=== PATIENT | male | born 1970 | race Caucasian/White ===

== ENCOUNTER 2018-08-10 08:38 | Inpatient (IN) ==
[~2018-08-10 08:38] MED LIST: Bupivacaine/Epinephrine PF Inj 0.5% 30 ML Vial ONE; Sugammadex Inj 200 MG/2 ML Vial IV.PUSH ONE
[2018-08-10] MEDS ORDERED: Chlorhexidine Gluconate 2% 1 Pack (2 Cloths) TOPICAL ONE (10:21)
[2018-08-10] MEDS ORDERED: Metoprolol Tartrate 25 MG Tablet PO ONE (10:21)
[2018-08-10] MEDS ORDERED: ceFAZolin 2 GM Premix Inj 2 GM/50 ML PIGGYBACK IV.SIG SCH (10:24)
[2018-08-10] MEDS ORDERED: Sodium Chlor 0.9% Inj 500 ML IV.SIG SCH (11:00)
[2018-08-10] MEDS ORDERED: ceFAZolin Inj 3,000 MG in Sodium Chlor 0.9% Inj 100 ML IV.SIG SCH (12:00)
[2018-08-10] MEDS ORDERED: Bupivacaine/Epinephrine PF Inj 0.5% 30 ML Vial ONE (13:10)
[2018-08-10] MEDS ORDERED: Phenylephrine/NS 1000 MCG/10ML Syringe IV.PUSH ONE (13:36)
[2018-08-10] MEDS ORDERED: Succinylcholine Inj 100 MG/5 ML Syringe IV.PUSH ONE (13:36)
[2018-08-10] MEDS ORDERED: ceFAZolin 1 GM Premix Inj 1 GM/50 ML PIGGYBACK IV.SIG ONE (14:09)
[2018-08-10] MEDS ORDERED: Sugammadex Inj 200 MG/2 ML Vial IV.PUSH ONE (14:18)
[2018-08-10] MEDS ORDERED: diphenhydrAMINE HCl 12.5 MG/5 ML Elixir UDC PO PRN (17:23)
[2018-08-10] MEDS ORDERED: Post-op Orders (for Pharmacy) OTHER STA (17:23)
[2018-08-10] MEDS ORDERED: Naloxone Inj 0.4 MG/ML Vial IV.PUSH PRN (17:31)
[2018-08-10] MEDS ORDERED: fentaNYL Citrate Inj 100 MCG/2 ML Ampul ONE (17:49)
[2018-08-10] MEDS ORDERED: Morphine Inj 4 MG/ML Vial ONE (17:50)
[2018-08-10] MEDS ORDERED: Morphine Inj 30 MG/30 ML PCA.VIAL PCA ONE (18:13)
[2018-08-10] MEDS: Morphine Inj 30 MG/30 ML PCA.VIAL PCA PRN (18:13)
[2018-08-10] MEDS: KCL 20 mEq/D5W/NaCl 0.45% Inj 1,000 ML IV.CONT SCH (18:31)
[2018-08-10] MEDS ORDERED: *morphine SULFATE 10 MG/ML PERIprocedure ONLY ONE (18:50)
[2018-08-10] MEDS: Enoxaparin Inj 40 MG/0.4 ML Syringe SQ SCH (21:31)
[2018-08-10] MEDS: ceFAZolin 1 GM Premix Inj 1 GM/50 ML PIGGYBACK IV.SIG SCH (21:32)
[2018-08-11] MEDS: KCL 20 mEq/D5W/NaCl 0.45% Inj 1,000 ML IV.CONT SCH ×3 (01:32→20:36)
[2018-08-11] MEDS: ceFAZolin 1 GM Premix Inj 1 GM/50 ML PIGGYBACK IV.SIG SCH ×2 (05:26→12:24)
[2018-08-11 07:24] LABS: Carbon Dioxide 31.5 meq/L (21.0-32.0); Magnesium 2.3 mg/dL (1.5-2.5); Potassium 4.9 meq/L (3.5-5.1)
[2018-08-11] MEDS: Morphine Inj 30 MG/30 ML PCA.VIAL PCA PRN (07:54)
[2018-08-11 10:21] LABS: Baso % (Auto) 0.2 % (0.0-2.0); Eos % (Auto) 0.1 % (0.0-4.0); Hematocrit 43.4 % (39.0-51.0); Hemoglobin 14.4 gm/dL (13.0-17.0); Lymph # (Auto) 0.7 th/mm3 (1.0-4.8); Lymph % (Auto) 7.5 % (9.0-44.0); Mean Corpuscular HGB Conc 33.2 % (32.0-36.0); Mean Corpuscular Hemoglobin 31.2 pg (27.0-34.0); Mean Platelet Volume 7.7 fL (7.0-11.0); Mono # (Auto) 0.8 th/mm3 (0.0-0.9); Mono % (Auto) 8.5 % (0.0-8.0); Neut # (Auto) 8.2 th/mm3 (1.8-7.7); Neut % (Auto) 83.7 % (16.0-70.0); Platelet Count 277 th/mm3 (150-450); Red Blood Count 4.61 mil/mm3 (4.50-5.90); Red Cell Distribution Width 14.1 % (11.6-17.2); White Blood Count 9.8 th/mm3 (4.0-11.0)
[2018-08-11] MEDS: Enoxaparin Inj 40 MG/0.4 ML Syringe SQ SCH ×3 (10:26→23:41)
[2018-08-11] MEDS: Acetaminophen-HYDROcodone 325/7.5 Liq 15 ML UDC PO PRN ×2 (14:35→20:30)
[2018-08-11] MEDS: Ketorolac Inj 30 MG/ML (IVP) Vial IV.PUSH SCH (17:57)
[2018-08-12] MEDS: Ketorolac Inj 30 MG/ML (IVP) Vial IV.PUSH SCH ×2 (01:27→04:59)
[2018-08-12] MEDS: KCL 20 mEq/D5W/NaCl 0.45% Inj 1,000 ML IV.CONT SCH ×3 (01:30→10:08)
[2018-08-12] MEDS: Acetaminophen-HYDROcodone 325/7.5 Liq 15 ML UDC PO PRN ×2 (04:48→10:38)
[2018-08-12] MEDS: Enoxaparin Inj 40 MG/0.4 ML Syringe SQ SCH (10:04)
--- NOTE | 2018-08-12 15:43 | P.PNGS ---
Subjective Patient reports: no new complaints, tolerating liquids well (Pt denies SOB, palpitations or chest pain, no nausea. He does c/o some low back pain. ), no flatus Physical Exam Vital signs: Vital Signs 08/11/18 16:00 08/11/18 16:01 08/11/18 16:02 Temperature 97.1 F L Pulse Rate 93 H 88 Respiratory Rate 18 18 Blood Pressure 138/61 Pulse Oximetry 89 L 91 L 08/11/18 20:00 08/11/18 21:39 08/12/18 00:00 Temperature 97.4 F L 97.6 F Pulse Rate 88 91 H 83 Respiratory Rate 22 22 22 Blood Pressure 123/67 131/69 Pulse Oximetry 93 L 94 L 08/12/18 08:00 08/12/18 09:15 Temperature 97.1 F L Pulse Rate 79 70 Respiratory Rate 20 20 Blood Pressure 115/55 L Pulse Oximetry 95 96 Intake & Output 08/11/18 08/12/18 08/12/18 18:59 06:59 18:59 Intake Total 3440 / 3440 1120 / 1120 Output Total 1175 / 1175 400 / 400 Balance 2265 / 2265 720 / 720 Weight 222.9 kg Intake: IV 2600 / 2600 1000 / 1000 D5W/1/2NS + KCL 20 mEq Inj , 1999 / 1999 1000 / 1000 000 ML @ 125 mls/hr IV.CONT . Q8H JARED Rx#:[id number] Ofirmev Inj 1,000 mg In 100 ml 200 / 200 @ 400 mls/hr IV.SIG Q6H JARED Rx# :[id number] Ancef 1 GM Premix Inj 1 gm In 50 / 50 50 ml @ 100 mls/hr IV.SIG Q8H JARED Rx#:[id number] Flagyl 500 MG Inj 100 ML @ 100 100 / 100 mls/hr IV.SIG Q8H JARED Rx#: [id number] Oral 840 / 840 120 / 120 Output: Urine 225 / 225 400 / 400 Urine Amount (Catheter) 950 / 950 Indwelling Urethral Catheter 950 / 950 Other: # Bowel Movements 0 Narrative: GENERAL: SKIN: Warm and dry. HEAD: Normocephalic. EYES: No scleral icterus. No injection or drainage. NECK: Supple, trachea midline. No JVD or lymphadenopathy. CARDIOVASCULAR: Regular rate and rhythm without murmurs, gallops, or rubs. RESPIRATORY: Breath sounds equal bilaterally. No accessory muscle use. GASTROINTESTINAL: Abdomen soft, normal post operative tenderness, laparoscopic sites WNL, mildly distended. MUSCULOSKELETAL: No cyanosis, or edema. BACK: Nontender without obvious deformity. No CVA tenderness. - Urinary Catheter Management Indwelling Urethral Catheter Cath placed during this visit: yes, but has since been removed by the nurse Reason for continuing: Decision to DC catheter Insertion date: 08/10/18 Removal date: 08/11/18 Removal time: 10:40 Results - Labs 08/11/18 09:12 08/11/18 06:22 Assessment and Plan - Plan POD #1 laparoscopic RNY Advance clear liquids to 60 ml every 30 minutes DC HAND [employer]OT[employer]ER, start toradol for back pain. Walk ad yas, with SCD's Anticipate DC home tomorrow if continues to do well. Code Status: full Discussed Condition With: patient.
--- NOTE | 2018-08-12 15:44 | P.PNGS ---
Subjective Patient reports: no new complaints (Pt denies chest pain palpitations or SOB. ) Physical Exam Vital signs: Vital Signs 08/11/18 16:00 08/11/18 16:01 08/11/18 16:02 Temperature 97.1 F L Pulse Rate 93 H 88 Respiratory Rate 18 18 Blood Pressure 138/61 Pulse Oximetry 89 L 91 L 08/11/18 20:00 08/11/18 21:39 08/12/18 00:00 Temperature 97.4 F L 97.6 F Pulse Rate 88 91 H 83 Respiratory Rate 22 22 22 Blood Pressure 123/67 131/69 Pulse Oximetry 93 L 94 L 08/12/18 08:00 08/12/18 09:15 Temperature 97.1 F L Pulse Rate 79 70 Respiratory Rate 20 20 Blood Pressure 115/55 L Pulse Oximetry 95 96 Intake & Output 08/11/18 08/12/18 08/12/18 18:59 06:59 18:59 Intake Total 3440 / 3440 1120 / 1120 Output Total 1175 / 1175 400 / 400 Balance 2265 / 2265 720 / 720 Weight 222.9 kg Intake: IV 2600 / 2600 1000 / 1000 D5W/1/2NS + KCL 20 mEq Inj 1, 2000 / 2000 1000 / 1000 000 ML @ 125 mls/hr IV.CONT . Q8H JARED Rx#:[id number] Ofirmev Inj 1,000 mg In 100 ml 200 / 200 @ 400 mls/hr IV.SIG Q6H JARED Rx# :[id number] Ancef 1 GM Premix Inj 1 gm In 50 / 50 50 ml @ 100 mls/hr IV.SIG Q8H JARED Rx#:[id number] Flagyl 500 MG Inj 100 ML @ 100 100 / 100 mls/hr IV.SIG Q8H JARED Rx#: [id number] Oral 840 / 840 120 / 120 Output: Urine 225 / 225 400 / 400 Urine Amount (Catheter) 950 / 950 Indwelling Urethral Catheter 950 / 950 Other: # Bowel Movements 0 Narrative: GENERAL: SKIN: Warm and dry. HEAD: Normocephalic. EYES: No scleral icterus. No injection or drainage. NECK: Supple, trachea midline. No JVD or lymphadenopathy. CARDIOVASCULAR: Regular rate and rhythm without murmurs, gallops, or rubs. RESPIRATORY: Breath sounds equal bilaterally. No accessory muscle use. GASTROINTESTINAL: Abdomen soft, normal post operative tenderness, laparoscopic sites WNL, mildly distended. MUSCULOSKELETAL: No cyanosis, or edema. BACK: Nontender without obvious deformity. No CVA tenderness. - Urinary Catheter Management Indwelling Urethral Catheter Cath placed during this visit: yes, but has since been removed by the nurse Reason for continuing: Decision to DC catheter Insertion date: 08/10/18 Removal date: 08/11/18 Removal time: 10:40 Results - Labs 08/11/18 09:12 08/11/18 06:22 Assessment and Plan - Plan POD #2 laparoscopic RNY Advance to full liquid diet. Continue hycet Walk ad yas, with SCD's DC home today. Code Status: full Discussed Condition With: patient.
--- NOTE | 2018-08-15 23:46 | MP ---
cc: Eduard Cavazos MD DATE OF OPERATION: 08/10/2018 PREOPERATIVE DIAGNOSIS: Super obesity with a body mass index of 60 complicated by obstructive sleep apnea and essential hypertension. POSTOPERATIVE DIAGNOSIS: Super obesity with a body mass index of 60 complicated by obstructive sleep apnea and essential hypertension. PROCEDURE PERFORMED: 1. Laparoscopic Yuliana-en-Y gastric bypass, 100 cm Yuliana limb, antegastric, antecolic. 2. Extensive lysis of adhesions. SURGEON: Eduard Cavazos MD ORAL AND MAXILLOFACIAL SURGERY: Kt Rosen MD. Dr. Rosen's assistance was necessary for the procedure due to the complexity of the procedure. Dr. Rosen assisted with manipulation and exposure during the procedure. The fast food sales assistant provided by [employer] managed the camera during the procedure. ANESTHESIA: General endotracheal anesthesia. ESTIMATED BLOOD LOSS: 50 mL. FINDINGS: Adhesions of small bowel to the abdominal wall as well as omentum in the right upper quadrant. This appeared to be distal small bowel and complete lysis of adhesions was not undertaken and the bowel that was remaining did not compromise the operation that was necessary. SPECIMENS: None. COMPLICATIONS: None. OPERATION IN DETAIL: The patient was brought to the operating room and placed on the operating table in supine position, bilateral sequential inflation device placed on lower extremities, general anesthesia instituted, antibiotics initiated. The abdomen was prepped and draped sterilely. A point 18-cm distal to the xiphoid in the midline anesthetized with 0.25% Marcaine with epinephrine. The skin incision was made, a 5-mm OptiView port placed under direct vision and pneumoperitoneum was created. Attention was focused in the right upper quadrant. There were extensive adhesions. An additional port was placed in the left lower quadrant. Adhesiolysis was undertaken using care not to injure the bowel using both blunt and sharp dissection. Once this was done, an additional 5 mm port was placed in the left upper quadrant as well as a 12 mm port. The bowel was inspected. It was measured beyond the necessary measurement for the standard operation. Once it was confirmed that the operation could be performed with the remaining adhesions in place, this was performed in the usual manner. Under direct vision a 5-mm left upper quadrant, 12-mm left upper quadrant, 12-mm right upper quadrant and 5-mm right upper quadrant ports were placed. Prior to placement of all ports, the skin and peritoneum were anesthetized with 0.25% Marcaine with epinephrine. The patient's omentum was lifted into the upper abdomen. It was split down the middle to create a path for the Yuliana limb. The ligament of Treitz was identified, a point 40 cm distal identified. The small bowel was divided in this region using an [place] Flex stapler vascular load reinforced with SeamGuard. The distal segment was brought up for a distance of 100 cm, enterotomy created in this region, enterotomy in the biliopancreatic limb and a [id number] stapled jejunojejunostomy created in the usual manner. The mesenteric defect at the jejunojejunostomy was closed with 2-0 Surgidac suture in a running manner. The patient was placed in reverse Trendelenburg position with the left side up. The Amanda-Flex retractor was placed. The left lobe of the liver was retracted. The angle of His was taken down bluntly, a point 5 cm distal to the GE junction along the lesser curve identified, the lesser sac entered using blunt dissection. The stomach was partitioned horizontally using an [place]-Flex stapler blue load, an additional firing taken directed towards the angle of His to completely divide the stomach. A gastrotomy created in the new stomach, enterotomy in the Yuliana limb and gastrojejunostomy created, stomal opening of 2 cm. An 18-Irish orogastric tube was placed across the anastomosis, the defect then closed in two layers of running 2-0 Vicryl. Prior to placement of the second layer, methylene blue instilled through the orogastric tube. There was no evidence of extravasation. Evicel was then placed over the gastrojejunostomy, jejunojejunostomy and all staple lines. The operative field inspected and hemostasis was present. The CO2 was released, all ports were removed. All skin incisions were closed with 4-0 Monocryl. The abdominal wall was cleaned and a sterile dressing placed. The patient was awakened and taken to the recovery room. MD SHRADDHA Knox/abigail , 11:02 PM , 11:10 PM
== END 2018-08-12 10:45 | disposition home or self-care (01) ==
LOC: HSDC 08:38 → N07 19:10
PROVIDERS: ADMIT Surgery; ATTEND Surgery